=== PATIENT | female | born 1960 | race Caucasian/White ===

== ENCOUNTER 2019-04-16 13:42 | Outpatient (CLI) | payer OTHER, SELFPAY ==
--- NOTE | 2019-04-16 14:01 | XR_ITS ---
WS: [id number] DEXA (DUAL ENERGY X-RAY ABSORPTIOMETRY) Bone mineral density was performed using a BATS machine. HISTORY: POST MENOPAUSAL COMPARISON: None available. Lumbar spine BMD (L1-L4): 0.997 g/cm2 T score: -1.5 Z score: -0.9 Total hip BMD: Left: 0.892 g/cm2. T score: -0.9 Z score: -0.4 Right: 0.933 g/cm2. T score: -0.6 Z score: 0.0 10 year probability of a major osteoporotic fracture is 12%. XR/XR DEXA axial skeleton* [id number] IMPRESSION: OSTEOPENIA based upon the WHO classification for females. Patient is at increas ed risk for fracture.
== END 2019-04-16 13:43 | disposition home or self-care (01) ==
LOC: RADWPI 13:46
PROVIDERS: Family Provider Family Medicine; PCP Family Medicine; Visit Provider Family Medicine
DX: Z78.0 Asymptomatic menopausal state (principal)
CPT/HCPCS: 77080

== ENCOUNTER 2019-05-21 14:24 | Outpatient (CLI) | payer OTHER, SELFPAY ==
--- NOTE | 2019-05-21 | XR_ITS ---
WS: [id number] CHEST 2 VIEWS HISTORY: CHRONIC COUGH COMPARISON: 11/09/2016 Lungs: Scattered granulomatous calcifications. No mass or pneumonia. No pleural effusion or pneumotho rax. Cardiac size: Normal. Mediastinum/Aorta: Normal mediastinum. Bones: Normal. XR/XR chest 2V* [id number] IMPRESSION: No acute cardiopulmonary disease. Prior granulomatous disease.
--- NOTE | 2019-05-21 | XR_ITS ---
WS: [id number] LEFT SHOULDER: 3 VIEW(S) TECHNIQUE: Internal and external rotation with Y view. HISTORY: LEFT SHOULDER PAIN COMPARISON: None available. No fracture or dislocation or soft tissue abnormality. Mild narrowing of the glenohumeral joint and AC joint. Small osteophyte and bony hypertrophy. Small calcifications in the LEFT lung. XR/XR shoulder LT min 2V* [id number] IMPRESSION: Mild AC joint and glenohumeral joint arthritis.
== END 2019-05-21 14:25 | disposition home or self-care (01) ==
LOC: RADOUTREAD 16:18
PROVIDERS: Family Provider Family Medicine; PCP Family Medicine; Visit Provider Family Medicine
DX: Z76.89 Persons encountering health services in other specified circumstances (principal)

== ENCOUNTER 2019-06-05 14:06 | Outpatient (RCR) | payer OTHER, SELFPAY | END 2019-06-26 23:59 | disposition home or self-care (01) | LOC: SPT 14:06 | PROVIDERS: Family Provider Family Medicine; PCP Family Medicine; Referring Provider Family Medicine; Visit Provider Family Medicine | DX: M75.22 Bicipital tendinitis, left shoulder (principal) | CPT/HCPCS: 97110; 97161; 97530 ==

== ENCOUNTER 2019-10-30 12:37 | Outpatient (CLI) | payer OTHER, SELFPAY ==
--- NOTE | 2019-10-30 12:45 | USCV_ITS ---
Wilbur Zurita Age: 59 Gender: F : 1960 Exam Date: 10/30/2019 12:57 Ordering Phys: Rao Loza MD Technologist: Becki Nieto Exam Location: [facility] [place] Indication: SOB BP: 120 / 70 HR: 83 Rhythm: Sinus Technical Quality: Adequate MEASUREMENTS (Male / Female) Normal Values 2D ECHO LV Diastolic Diameter PLAX 3.2 cm 4.2 - 5.9 / 3.9 - 5.3 cm LV Systolic Diameter PLAX 3.9 cm LV Chamber Size 2.8 cm IVS Diastolic Thickness 1.2 cm 0.6 - 1.0 / 0.6 - 0.9 cm IVS Systolic Thickness 1.6 cm LVPW Diastolic Thickness 1.2 cm 0.6 - 1.0 / 0.6 - 0.9 cm LVPW Systolic Thickness 1.7 cm RV Chamber Size 2.3 cm LVOT Diameter 2.0 cm LV Ejection Fraction 2D Teich 59.2 % LV Ejection Fraction MOD 2C 73.6 % LV Ejection Fraction 2C AL 74.2 % LA Diameter 3.8 cm LA Width 2.4 cm LA Height 3.3 cm RA Width 2.8 cm RA Height 3.5 cm Aorta at Sinotubular Diameter 3.2 cm M-MODE LV Diastolic Diameter MM 3.9 cm 4.2 - 5.9 / 3.9 - 5.3 cm LV Systolic Diameter MM 3.0 cm LV Ejection Fraction MM Teich 46.7 % IVS Diastolic Thickness MM 0.8 cm 0.6 - 1.0 / 0.6 - 0.9 cm IVS Systolic Thickness MM 1.5 cm LVPW Diastolic Thickness MM 1.6 cm 0.6 - 1.0 / 0.6 - 0.9 cm LVPW Systolic Thickness MM 1.5 cm RV Diastolic Diameter MM 1.6 cm Aortic Annulus Diameter 3.2 cm LA Ao Ratio MM 1.2 DOPPLER AV Peak Velocity 113.0 cm/s LVOT Peak Velocity 79.0 cm/s AV Area Cont Eq vti 2.2 cm squared AV Area Cont Eq pk 2.2 cm squared MV Area PHT 4.9 cm squared Mitral E to A Ratio 0.8 MV E' Velocity 7.0 cm/s Mitral E to MV E' Ratio 7.8 Mitral E to LV E' Lateral Ratio 9.0 Mitral E to LV E' Septal Ratio 6.9 TR Peak Velocity 109.5 cm/s TR Peak Gradient 4.8 mmHg TR Mean Velocity 84.2 cm/s TR Mean Gradient 2.9 mmHg TR Velocity Time Integral 22.8 cm TV Peak E Velocity 61.0 cm/s Right Atrial Pressure 3.0 mmHg Pulmonary Artery Systolic Pressu 7.8 mmHg PV Peak Velocity 77.0 cm/s RV Acceleration Time 0.1 s RV Ejection Time 0.3 s RV AcT/ET 0.5 FINDINGS Left Ventricle Normal left ventricular size and systolic function with no regional wall motion abnormalities. Mild LVH is noted. Grade 1 diastolic dysfunction is present. Right Ventricle The right ventricle is normal in size and function. Right Atrium The right atrium is normal in size. Left Atrium The left atrium is normal in size. Mitral Valve Structurally normal mitral valve without significant stenosis or prolapse. There is no mitral regurgitation. Aortic Valve Structurally normal aortic valve without significant sclerosis or stenosis. There is no aortic regurgitation. Tricuspid Valve Structurally normal tricuspid valve without significant stenosis or regurgitation. Insufficient TR jet to calculate RVSP. Pulmonic Valve Structurally normal pulmonic valve without significant stenosis. There is no pulmonic regurgitation. Pericardium Normal pericardium without effusion. Aorta Normal ascending aorta dimension. CONCLUSIONS Normal LV LV systolic function with EF of 55 to 60%. Grade 1 diastolic dysfunction is present. Ciro Zaldivar MD (Electronically Signed) Final Date: 30 October 2019 17:04 S
== END 2019-10-30 12:38 | disposition home or self-care (01) ==
LOC: RAD 12:39
PROVIDERS: PCP Family Medicine; Visit Provider Internal Medicine Critical Care Medicine
DX: R06.02 Shortness of breath (principal); I51.81 Takotsubo syndrome
CPT/HCPCS: 93306

== ENCOUNTER 2019-11-01 09:04 | Outpatient (CLI) | payer OTHER, SELFPAY ==
--- NOTE | 2019-11-01 09:07 | CT_ITS ---
WS: [id number] CT LUNG CANCER SCREENING DLP: 76.43 mGy.cm DIvol: 2.27 mGy CLINICAL INFORMATION SCREENING VISIT: Baseline COMPARISON: None available. FINDINGS Diagnostic quality: Satisfactory Comments: None. Lung Nodules: No noncalcified pulmonary nodules, subsolid airspace disease or endobronchial lesions. Lungs: There are numerous bilateral, subcentimeter calcified granulomatous throughout both lungs. Heart: Normal size heart. No pericardial effusion. There are a few scattered coronary artery calcific ations in the LEFT anterior descending. Other findings: Small mediastinal and hilar lymph nodes. Normal size aorta. CT/CT lung screening [id number] IMPRESSION: LUNG-RADS: 2-Benign Appearance or Behavior FOLLOW UP: 12 Month: Continue annual screening with LDCT
== END 2019-11-01 09:05 | disposition home or self-care (01) ==
LOC: CT 09:05
PROVIDERS: PCP Family Medicine; Visit Provider Internal Medicine Critical Care Medicine
DX: Z12.2 Encounter for screening for malignant neoplasm of respiratory organs (principal); Z87.891 Personal history of nicotine dependence
CPT/HCPCS: G0297

== ENCOUNTER 2019-11-14 08:29 | Outpatient (RCR) | payer OTHER, SELFPAY | END 2019-11-26 23:59 | disposition home or self-care (01) | LOC: SPT 08:29 | PROVIDERS: PCP Family Medicine; Referring Provider Family Medicine; Visit Provider Family Medicine | DX: R42 Dizziness and giddiness (principal) | CPT/HCPCS: 95992; 97162 ==

== ENCOUNTER → 2022-07-15 10:19 | Outpatient (BNVA) | payer OTHER, SELFPAY | PROVIDERS: PCP Family Medicine; Visit Provider Internal Medicine Pulmonary Disease | DX: J45.909 Unspecified asthma, uncomplicated (principal); R06.02 Shortness of breath; R05.9 Cough, unspecified; Z87.891 Personal history of nicotine dependence | CPT/HCPCS: 82785; 85025; 86003 ==

== ENCOUNTER 2022-08-05 07:04 | Outpatient (CLI) | payer OTHER, SELFPAY ==
--- NOTE | 2022-08-05 08:15 | CT_ITS ---
WS: [id number] LDCT LUNG CANCER SCREENING TECHNIQUE: Noncontrast CT of the chest with coronal and sagittal reformatted images. CLINICAL INFORMATION: Former smoker COMPARISON: CT November 01, 2019 DLP: 93.59 mGy.cm DIvol: Mean CTDIvol: 2.20 (mGy) All CT scans at [facility] use at least one of these dose optimization techniques: automat ed exposure control; mA and/or kV adjustment per patient size (includes targeted exams where dose is matched to clinical indication); or iterative reconstruction. FINDINGS: Mild aortic calcification. Coronary calcification. No mediastinal or hilar lymphadenopathy. No axilla ry lymphadenopathy. Small esophageal hiatal hernia. Adrenal glands are normal. Numerous scattered tiny calcified granulomas in both lungs. No new suspicious pulmonary parenchymal o pacities. No acute pulmonary infiltrates. CT/CT lung screening [id number] IMPRESSION: LUNG-RADS: 2-Benign Appearance or Behavior FOLLOW UP: 12 Month: Continue annual screening with LDCT
== END 2022-08-05 07:05 | disposition home or self-care (01) ==
PROVIDERS: PCP Family Medicine; Visit Provider Internal Medicine Pulmonary Disease
DX: Z12.2 Encounter for screening for malignant neoplasm of respiratory organs (principal); Z87.891 Personal history of nicotine dependence; R06.02 Shortness of breath
CPT/HCPCS: 71271; 94010; 94618; 94726; 94729

== ENCOUNTER → 2023-06-20 08:12 | Outpatient (BNVA) | payer MEDICARE, SELFPAY | PROVIDERS: PCP Family Medicine; Visit Provider Internal Medicine Pulmonary Disease | DX: J45.50 Severe persistent asthma, uncomplicated (principal); L30.9 Dermatitis, unspecified; Z87.891 Personal history of nicotine dependence | CPT/HCPCS: 99214 ==

== ENCOUNTER 2023-08-09 09:57 | Outpatient (CLI) | payer MEDICARE, SELFPAY ==
--- NOTE | 2023-08-09 10:00 | CT_ITS ---
WS: [id number] LDCT LUNG CANCER SCREENING TECHNIQUE: Noncontrast CT of the chest with coronal and sagittal reformatted images. CLINICAL INFORMATION: Cancer Screen COMPARISON: CT 08/05/2022 DLP: 69.12 mGy.cm DIvol: Mean CTDIvol: 1.50 (mGy) All CT scans at [facility] use at least one of these dose optimization techniques: automat ed exposure control; mA and/or kV adjustment per patient size (includes targeted exams where dose is matched to clinical indication); or iterative reconstruction. FINDINGS: Again seen are numerous scattered tiny calcified granulomas throughout both lungs. No new suspicious pulmonary parenchymal abnormalities. Aortic calcification. Normal caliber thoracic aorta. Coronary calcification. No mediastinal or hilar lymphadenopathy. No axillary lymphadenopathy. Adrenal glands are normal. CT/CT lung screening [id number] IMPRESSION: LUNG-RADS: 2-Benign Appearance or Behavior FOLLOW UP: 12 Month: Continue annual screening with LDCT
== END 2023-08-09 09:58 | disposition home or self-care (01) ==
LOC: RAD 09:57
PROVIDERS: PCP Family Medicine; Visit Provider Internal Medicine Pulmonary Disease
DX: Z87.891 Personal history of nicotine dependence (principal); Z12.2 Encounter for screening for malignant neoplasm of respiratory organs
CPT/HCPCS: 71271

== ENCOUNTER 2023-11-09 14:08 | Outpatient (CLI) | payer MEDICARE, SELFPAY ==
--- NOTE | 2023-11-09 14:17 | XR_ITS ---
WS: [email or web address] SCREENING DEXA SCAN [employer] CLINICAL INFORMATION: POSTMENOPAUSAL COMPARISON: 2019 FINDINGS: The L1-L4 bone mineral density measures 1.056 g/cm2. This corresponds to a T score score of -1.0 and Z score of 0.3. Left femoral neck bone mineral density measures 0.855 g/cm2. This corresponds to a T score of -1.2 an d Z score of -0.2. Right femoral neck bone mineral density measures 0.895 g/cm2. This corresponds to a T score -0.9of an d Z score of 0.1. Mean femoral neck bone mineral density measures 0.875 g/cm2. This corresponds to a T score of -1.1 an d Z score of -0.1. XR/XR DEXA axial skeleton* [id number] IMPRESSION: Osteopenia lumbar spine. Osteopenia femoral necks. Patient's FRAX calculated 10 year probability for major osteoporotic fracture i s 10.5% and osteoporotic hip fracture is 0.9%. Bone mineral density lumbar spine increased 5.9% Bone mineral density femoral necks decreased -4.2%
--- NOTE | 2023-11-09 14:17 | MM_ITS ---
WS: [email or web address] BILATERAL 3D TOMOSYNTHESIS DIGITAL SCREENING MAMMOGRAPHY WITH CAD CLINICAL INFORMATION: SCREENING HISTORY: Screening mammogram. No current complaints. COMPARISON: 2019 TECHNIQUE: Bilateral CC and MLO views. FINDINGS: Scattered fibroglandular densities bilaterally. Increasing nodularity subareolar RIGHT breast. Recomm end RIGHT breast subareolar ultrasound in further evaluation. Unremarkable LEFT breast. Incidental punctate and lucent centered calcifications. Vascular calcification. MM/[place] [id number] IMPRESSION: BI-RADS: 0-Incomplete: Need additional imaging evaluation FOLLOW UP: Need Additional Imaging Recommend RIGHT breast subareolar ultrasound in further evaluation.
== END 2023-11-09 14:09 | disposition home or self-care (01) ==
LOC: RAD 14:10
PROVIDERS: PCP Family Medicine; Visit Provider Family Medicine
DX: Z12.31 Encounter for screening mammogram for malignant neoplasm of breast (principal); Z12.2 Encounter for screening for malignant neoplasm of respiratory organs; Z78.0 Asymptomatic menopausal state; R92.323 Mammographic fibroglandular density, bilateral breasts; R92.1 Mammographic calcification found on diagnostic imaging of breast; M85.859 Other specified disorders of bone density and structure, unspecified thigh; M85.88 Other specified disorders of bone density and structure, other site
CPT/HCPCS: 77063; 77067; 77080

== ENCOUNTER 2023-11-21 11:09 | Outpatient (CLI) | payer MEDICARE, SELFPAY ==
--- NOTE | 2023-11-21 11:13 | US_ITS ---
WS: [id number] Exam: US breast RT limited* [id number] Date/Time of Exam: 11/21/2023 11:26 AM Reason For Exam: INCONCLUSIVE MAMMOGRAM The subareolar area of the RIGHT breast is evaluated with ultrasound. At the 3 o'clock position a small heterogeneous hypoechoic subcutaneous nodule is noted measuring abo ut 5 mm in greatest diameter. This does not have suspicious appearance and may represent a sebaceous cyst. No other nodules are identified. A single mildly dilated duct is noted at the 6:00 subareolar a yumiko. Recommendations: 6-month follow-up RIGHT breast ultrasound for surveillance. US/US breast RT limited* [id number] IMPRESSION: 1. Small heterogeneous hypoechoic subcutaneous nodule seen at the 3:00 subareol ar area of the breast measuring 5 mm. This does not have suspicious appearance and may be a tiny sebaceous cyst. No suspicious masses were identified. 2. Single mildly dilated duct at the 6 o'clock position. BI-RADS Category 3.
== END 2023-11-21 11:10 | disposition home or self-care (01) ==
LOC: RAD 11:11
PROVIDERS: PCP Family Medicine; Visit Provider Family Medicine
DX: R92.2 Inconclusive mammogram (principal); N60.41 Mammary duct ectasia of right breast
CPT/HCPCS: 76642

== ENCOUNTER 2024-05-18 09:06 | Outpatient (CLI) | payer MEDICARE, SELFPAY ==
--- NOTE | 2024-05-18 09:19 | US_ITS ---
WS: [id number] Exam: US breast RT limited* [id number] Date/Time of Exam: 05/18/2024 9:25 AM Reason For Exam: ABNORMAL MAMMOGRAM Comparison 11/21/2023. Regional ultrasound of the 3:00 retroareolar area of the RIGHT breast is performed. A stable appearing subcutaneous 5 mm nodule is again noted most likely representing a sebaceous cyst. No change. No new solid nodules or masses were identified in this region. Recommendations: Continue yearly screening mammography. US/US breast RT limited* [id number] IMPRESSION: 1. Stable appearing 5 mm subcutaneous nodule at the 3:00 retroareolar area of t he RIGHT breast. Appearance suggests sebaceous cyst. No new suspicious finding. BI-RADS Category 3.
== END 2024-05-18 09:07 | disposition home or self-care (01) ==
PROVIDERS: PCP Family Medicine; Visit Provider Family Medicine
DX: R92.8 Other abnormal and inconclusive findings on diagnostic imaging of breast (principal); N63.15 Unspecified lump in the right breast, overlapping quadrants
CPT/HCPCS: 76642

== ENCOUNTER → 2024-09-13 08:03 | Outpatient (BNVA) | payer MEDICARE, SELFPAY | PROVIDERS: PCP Family Medicine; Visit Provider Podiatrist Foot & Ankle Surgery | DX: M79.671 Pain in right foot (principal); M79.672 Pain in left foot; M21.41 Flat foot [pes planus] (acquired), right foot; M21.42 Flat foot [pes planus] (acquired), left foot; M19.072 Primary osteoarthritis, left ankle and foot; M19.071 Primary osteoarthritis, right ankle and foot; M20.41 Other hammer toe(s) (acquired), right foot; M20.42 Other hammer toe(s) (acquired), left foot | CPT/HCPCS: 73630; 99204 ==

== ENCOUNTER 2024-11-01 11:24 | Outpatient (CLI) | payer MEDICARE, SELFPAY | END 2024-11-01 11:25 | disposition home or self-care (01) | LOC: SPT 11:25 | PROVIDERS: PCP Family Medicine; Visit Provider Podiatrist Foot & Ankle Surgery | DX: Z46.89 Encounter for fitting and adjustment of other specified devices (principal); M20.40 Other hammer toe(s) (acquired), unspecified foot; M21.40 Flat foot [pes planus] (acquired), unspecified foot | CPT/HCPCS: L3030 ==

== ENCOUNTER 2024-11-09 13:23 | Outpatient (CLI) | payer MEDICARE, SELFPAY ==
--- NOTE | 2024-11-09 | MM_ITS ---
WS: [id number] Bilateral screening 3D tomosynthesis digital mammogram, 11/09/2024 1:33 PM Clinical Data: ANNUAL SCREENING Comparison: 11/09/2023, 02/08/2019, 10/06/2015, 05/28/2014, 07/09/2011. Findings: No spiculated masses or clustered calcifications are seen. There are no secondary signs of carcinoma. There are lymph nodes in both axilla. MM/MM scr BI tomosynthesis [id number] Impression: Negative bilateral mammogram unchanged. Recommend annual screening mammograms. BIRADS: 1 - Negative. FOLLOW UP: 1 Year Follow-up DENSITY: There are scattered areas of fibroglandular density. The CAD mechanical and auto body car checker was used
== END 2024-11-09 13:24 | disposition home or self-care (01) ==
LOC: RAD 13:24
PROVIDERS: PCP Family Medicine; Visit Provider Family Medicine
DX: Z12.31 Encounter for screening mammogram for malignant neoplasm of breast (principal)
CPT/HCPCS: 77063; 77067